=== PATIENT | female | born 1960 | race Caucasian/White ===

== ENCOUNTER → 2023-04-19 11:53 | Outpatient (REF) | payer OTHER, SELFPAY | LOC: DHCBC/DCA 11:53 | PROVIDERS: ATTENDING PHYSICIAN Internal Medicine Cardiovascular Disease; FAMILY PHYSICIAN Physician Assistant | DX: R00.2 Palpitations (principal); Z85.3 Personal history of malignant neoplasm of breast; R07.89 Other chest pain; E78.2 Mixed hyperlipidemia | CPT/HCPCS: 78452; 93017; A9500 ==

== ENCOUNTER → 2023-05-05 12:19 | Outpatient (REF) | payer OTHER, SELFPAY | LOC: WDC 12:19 | PROVIDERS: ATTENDING PHYSICIAN Obstetrics & Gynecology Gynecology; FAMILY PHYSICIAN Physician Assistant | DX: Z12.31 Encounter for screening mammogram for malignant neoplasm of breast (principal) | CPT/HCPCS: 77063; 77067 ==

== ENCOUNTER → 2023-05-19 10:14 | Outpatient (REF) | payer OTHER, SELFPAY | LOC: DHCBC MAIN 10:14 | PROVIDERS: ATTENDING PHYSICIAN Internal Medicine Cardiovascular Disease; FAMILY PHYSICIAN Physician Assistant | DX: R00.2 Palpitations (principal); Z85.3 Personal history of malignant neoplasm of breast; R07.89 Other chest pain; E78.2 Mixed hyperlipidemia | CPT/HCPCS: 93306 ==

== ENCOUNTER → 2023-11-27 09:07 | Outpatient (REF) | payer OTHER, SELFPAY | LOC: RCS 09:07 | PROVIDERS: ATTENDING PHYSICIAN Internal Medicine Cardiovascular Disease; FAMILY PHYSICIAN Physician Assistant | DX: R00.2 Palpitations (principal) | CPT/HCPCS: 93225; 93226 ==

== ENCOUNTER → 2024-05-10 12:02 | Outpatient (REF) | payer BC, SELFPAY | LOC: WDC 12:02 | PROVIDERS: ATTENDING PHYSICIAN Obstetrics & Gynecology Gynecology; FAMILY PHYSICIAN Physician Assistant | DX: Z12.31 Encounter for screening mammogram for malignant neoplasm of breast (principal) | CPT/HCPCS: 77063; 77067 ==

== ENCOUNTER 2024-10-25 10:21 | Emergency (ER) | payer BC, SELFPAY ==
[2024-10-25 10:24] VITALS: BP 130/68
--- NOTE | 2024-10-25 11:30 | ED.GENMED ---
History of Present Illness
General
Chief Complaint: Female Catering Sous [employer]/Gu symptoms
Time Seen by Provider: 10/25/24 11:11
Nursing documentation reviewed up to this point in time: agreed with
History of Present Illness
History of Present Illness:
64-year-old female presents to the ER for her pelvic ultrasound. Patient had seen her primary care due to feeling of bladder fullness. Patient denies any vaginal bleeding. She has no prior surgical history. She denies dysuria but has had
increased urinary frequency in the last day or so. She denies any fevers or chills. No change in p.o. intake. No change in bowel color or caliber. No vomiting. No recent antibiotics. No recent travel. No reported flank pain. She denies blood
in bowel or bladder. No unexplained weight loss or gain. She states that she had a urinalysis performed in the office which did not reveal infection. She was not placed on any medications, she was given a prescription for a pelvis ultrasound with
transvaginal combined by physician assistant Woodson which she provides to me to help facilitate further care
Phy Exam
Physical Exam
Physical Exam:
. Patient is awake, alert, appears in no acute distress, has not was phallic atraumatic, PERRL, EOMI, mucous membranes moist, heart regular rate and rhythm without murmurs or ectopy, lungs are clear to auscultation without wheezes rales or rhonchi,
abdomen is soft and nontender without guarding mass or rigidity, no palpable hernias,. No CVA tenderness extremities without edema, 2+ DP pulses present symmetric bilateral feet, GCS is 15
Course
Orders/Labs/Results
Orders:
Orders
10/25/24 11:21
US Pelvis W Transvag Combined Urgent
Comment: please also send resuls to [facility] Woodson
Reason For Exam: bladder discomfort/fullness
10/25/24 15:57
Urinalysis Reflex To Culture Urgent
Date Specimen was Collected: 10/25/24
Time Specimen was Collected: 15:51
Vital Signs
Initial and Last Documented VS:
Initial Vital Signs
Temp Pulse Resp BP Pulse Ox
98.2 F 62 18 130/68 99
10/25/24 10:24 10/25/24 10:24 10/25/24 10:24 10/25/24 10:24 10/25/24 10:24
Last Documented Vital Signs
Temp Pulse Resp BP Pulse Ox
98.2 F 62 18 130/68 99
10/25/24 10:24 10/25/24 10:24 10/25/24 10:24 10/25/24 10:24 10/25/24 11:34
MDM/Problems Addressed
Differential Diagnosis Includes:
Differential diagnosis to consider but not limited to interstitial cystitis, IBS, uterine mass along with other etiologies
*Pulse Oximetry
SaO2: 99
Oxygen Mode of Delivery: Room air
Patient hypoxic: no
*Critical Care Note
Total Time (30-74mins, 75-104mins- exclusive of procedures): Not Applicable
Update Note
Update Note:
Patient with overall benign exam. Will recheck urinalysis and obtain ultrasound as ordered by her primary provider.
1520: Considered patient still has not gone to ultrasound. I discussed with patient delay in obtaining test results. Given her overall benign appearance, we discussed discharge after obtaining radiology study and plan for follow-up with her
primary care provider as. She feels comfortable with this plan. Will prepare discharge paperwork.
1603:Ultrasound reviewed after patient left the department-
IMPRESSION:
No sonographic abnormalities demonstrated.
ED Attending Note
-
Portions of this chart may have been created with voice recognition software.� Occasional wrong word or��sound alike� substitutions may have occurred due to the inherent limitations of voice recognition software.
Discharge Plan
Departure
Patient Disposition: Home (Routine Discharge)
Date of Disposition: 10/25/24
Time of Disposition: 15:29
Patient with high blood pressure during this ER visit?: No
Discharge Problem:
Pelvic pain
Referrals:
Viv Woodson PA-C [Family Provider, Internal Medicine]
Activity Restrictions/Additional Instructions:
Please follow-up with your primary care provider to obtain test results and further treatment
Interventions
Interventions:
*Risk Screen - Suicide Last Done: 10/25/24 10:24
*Neglect/Abuse Screening Last Done: 10/25/24 10:24
*ED COVID-19 Vaccine History Last Done: 10/25/24 10:28
Discharge Date and Time
Print Language: HEBREW
[2024-10-25 16:27] LABS: Urine Character Clear (Clear)
== END 2024-10-25 16:49 | disposition home or self-care (01) ==
LOC: EMR 10:21
PROVIDERS: EMERGENCY PHYSICIAN Emergency Medicine; FAMILY PHYSICIAN Physician Assistant
DX: R10.2 Pelvic and perineal pain (principal); R35.0 Frequency of micturition
CPT/HCPCS: 99284; 76830; 76856; 81003; 81015; 87086